=== PATIENT | male | born 1955 | race Caucasian/White ===

== ENCOUNTER 2024-06-29 12:54 | Inpatient (IN) | payer OTHER, SELFPAY ==
[2024-06-29] VITALS (30 sets, daily range): BP systolic 89–213; BP diastolic 40–136; PULSE 54–97; RESP 16–20; TEMP 36.6–37.1; O2SAT 94–99; BMI 42.2; BMI 42.1
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
[2024-06-29] MEDS: KETOROLAC 15 MG/ML inj IVP (14:15)
[2024-06-29] MEDS: 0.9 % SODIUM CHLORIDE 1000 ml 1,000 ML IV (14:17)
[2024-06-29 14:51] LABS: Chloride* 105 mmol/L (96-114); Potassium* 3.9 mmol/L (3.6-5.1); Sodium* 137 mmol/L (135-149)
[2024-06-29 14:53] LABS: Creatinine* 1.1 mg/dL (0.5-1.5); Est. Creatinine Clearance* 68.21; Estimated Glomerular Filt Rate 74 ml/min
[2024-06-29 14:54] LABS: Anion Gap 5 mEq/L (7-15); Blood Urea Nitrogen* 35 mg/dL (7-30); Calcium* 8.7 mg/dL (8.4-10.6); Carbon Dioxide* 27 mmol/L (20-32); Glucose* 113 mg/dL (60-115)
[2024-06-29 15:16] LABS: Basophils Absolute Auto 0.03 K/uL (0.00-0.30); Basophils Percent Auto 0.4 % (0.0-3.0); Eosinophils Absolute Auto 0.13 K/uL (0.00-0.50); Eosinophils Percent Auto 1.7 % (0.0-7.0); Hematocrit 20.5 % (37.0-53.0); Immature Granulocytes Abs Auto 0.04 K/uL (0.00-0.30); Immature Granulocytes Pct Auto 0.5 %; Lymphocytes Percent Auto 15.7 % (20-44); Mean Corpuscular HGB Conc 33 gm/dL (32-36); Mean Corpuscular Hemoglobin 34 pg (26-34); Mean Corpuscular Volume 104 fL (80-100); Monocytes Percent Auto 8.1 % (0.0-11.0); Neutrophils Percent Auto 73.6 % (42.0-72.0); Platelet Count* 221 K/uL (140-440); RDW Coefficient of Variation % 13.4 % (11.5-15.5); Red Blood Count 1.98 m/uL (4.30-5.90); White Blood Count* 7.78 K/uL (4.50-11.00)
[2024-06-29 15:23] LABS: Hemoglobin* 6.8 gm/dL (13.5-17.5); Slide Review Reflex No
[2024-06-29 16:30] LABS: Fecal Occult Blood* Positive (Negative)
[2024-06-29] MEDS: MORPHINE 4 MG/ML INJ IVP (16:32)
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
[2024-06-29] MEDS: PANTOPRAZOLE SODIUM 40 MG INJ IVP ×2 (16:48→20:37)
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
[2024-06-29] MEDS: ACETAMINOPHEN 325 MG TABLET 975 MG PO (20:37)
[2024-06-29] MEDS: SODIUM CHLORIDE 0.9 % (FLUSH) 10 ML SYRINGE 5 ML IVF (20:39)
[2024-06-29] MEDS: PANTOPRAZOLE SODIUM 80 MG in 0.9 % SODIUM CHLORIDE 100 ml 100 ML 10 MG IVPB (20:39)
[2024-06-29 21:56] LABS: INR 1.05 (0.91-1.10); Prothrombin Time 14.4 Seconds
[2024-06-29] MEDS: FUROSEMIDE 10 MG/ML inj 20 MG IVP (22:16)
[2024-06-30] VITALS (17 sets, daily range): BP systolic 96–134; BP diastolic 56–75; PULSE 57–85; RESP 12–18; TEMP 36.3–37.2; O2SAT 93–98
[2024-06-30 06:24] LABS: Basophils Absolute Auto 0.03 K/uL (0.00-0.30); Basophils Percent Auto 0.6 % (0.0-3.0); Eosinophils Absolute Auto 0.23 K/uL (0.00-0.50); Eosinophils Percent Auto 4.8 % (0.0-7.0); Hematocrit 22.5 % (37.0-53.0); Immature Granulocytes Abs Auto 0.03 K/uL (0.00-0.30); Immature Granulocytes Pct Auto 0.6 %; Lymphocytes Absolute Auto 1.06 K/uL (0.90-2.90); Mean Corpuscular HGB Conc 33 gm/dL (32-36); Mean Corpuscular Hemoglobin 33 pg (26-34); Mean Corpuscular Volume 100 fL (80-100); Monocytes Percent Auto 9.5 % (0.0-11.0); Neutrophils Absolute Auto 3.01 K/uL (1.7-7.0); Neutrophils Percent Auto 62.5 % (42.0-72.0); Platelet Count* 164 K/uL (140-440); RDW Coefficient of Variation % 14.5 % (11.5-15.5); Red Blood Count 2.26 m/uL (4.30-5.90); White Blood Count* 4.82 K/uL (4.50-11.00)
[2024-06-30 06:30] LABS: Hemoglobin* 7.4 gm/dL (13.5-17.5); Slide Review Reflex No
--- NOTE | 2024-06-30 06:31 | PC.NURSE ---
End of shift [id number]: Pt has been A&O, afebrile and VSS with exception to ongoing soft BP?s ranging 80s/60s- 100s/70s. Pt denies having any pain, nausea or dizziness. He ambulates in the room SBA d/t IV pole with a steady gait. TELE applied showing NSR rate in keshia 60s-70s. Second unit of RBC?s infused this shift with no reaction or complications. PIV in left AC is now SL and C/D/I. PIV in right FA is infusing IV Protonix @ 10 mL/hr with an NS rider TKO. Pt has been NPO since 0000 for planned EGD today. He?s had adequate U/O overnight and no BM. 8/20 AM Hgb 7.4 improved from 6.8 yesterday after receiving 2 units. ?
--- NOTE | 2024-06-30 08:51 | REH.OT ---
OT consult order received. Hold eval today per MD.
[2024-06-30] MEDS: SODIUM CHLORIDE 0.9 % (FLUSH) 10 ML SYRINGE 5 ML IVF ×2 (09:16→21:04)
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
--- NOTE | 2024-06-30 10:47 | P.ANES_ITS ---
Anesthesia Charges Start Date/Time Anesthesia Start Date: 06/30/24 Anesthesia Start Time: 10:16 Stop Date/Time Anesthesia Stop Date: 06/30/24 Anesthesia Stop Time: 10:35 Summary Emergency: [employer]
[2024-06-30] MEDS: ACETAMINOPHEN 325 MG TABLET 975 MG PO ×2 (13:07→21:07)
--- NOTE | 2024-06-30 15:21 | PC.NURSE ---
End of shift [id number]: Pt has been A&O, afebrile and VSS. Pt denies SOB/CP/N/V. He ambulates in the room SBA. TELE applied showing NSR. Third?unit of RBC?s infused this shift with no reaction or complications. SL. Pt tolerates reg diet well following EGD. Pt expressed knee pain 3/10, prn pain medication given. Pt is resting comfortably with call light in reach. ?
[2024-06-30 16:42] LABS: Hemoglobin* 8.7 gm/dL (13.5-17.5)
[2024-06-30 16:56] LABS: Chloride* 107 mmol/L (96-114); Sodium* 136 mmol/L (135-149)
[2024-06-30 16:59] LABS: Anion Gap 2 mEq/L (7-15); Blood Urea Nitrogen* 19 mg/dL (7-30); Carbon Dioxide* 27 mmol/L (20-32); Est. Creatinine Clearance* 75.03; Estimated Glomerular Filt Rate 83 ml/min
--- NOTE | 2024-06-30 16:59 | PC.NURSE ---
Shift Summary: Patient pleasant and cooperative. Up with one assist, walker and gait belt. Vitals stable and WNL. Up in halls walking with staff. Pain managed with PRN medication see JAN. Dressings dry and intact, DARCI removed today by surgeon. Tolerating regular diet, denies nausea.
[2024-06-30 17:00] LABS: Calcium* 8.3 mg/dL (8.4-10.6); Glucose* 128 mg/dL (60-115)
[2024-06-30] MEDS: SIMVASTATIN 20 MG TABLET PO (17:50)
[2024-06-30] MEDS: PANTOPRAZOLE SODIUM 40 MG INJ IVP (21:04)
[2024-07-01 02:24] VITALS: BP 113/71; PULSE 70; RESP 18; TEMP 36.8; O2SAT 96
--- NOTE | 2024-07-01 04:21 | PC.NURSE ---
Pt rested well this night. No BM. Up IND. Pain remains but is tolerated with PRN Tylenol. VS unremarkable.
[2024-07-01 06:49] LABS: Basophils Absolute Auto 0.03 K/uL (0.00-0.30); Basophils Percent Auto 0.5 % (0.0-3.0); Eosinophils Absolute Auto 0.27 K/uL (0.00-0.50); Eosinophils Percent Auto 4.6 % (0.0-7.0); Hematocrit 27.5 % (37.0-53.0); Hemoglobin* 8.9 gm/dL (13.5-17.5); Immature Granulocytes Abs Auto 0.06 K/uL (0.00-0.30); Lymphocytes Absolute Auto 1.27 K/uL (0.90-2.90); Lymphocytes Percent Auto 21.7 % (20-44); Mean Corpuscular HGB Conc 32 gm/dL (32-36); Mean Corpuscular Hemoglobin 33 pg (26-34); Mean Corpuscular Volume 100 fL (80-100); Monocytes Percent Auto 7.2 % (0.0-11.0); Neutrophils Absolute Auto 3.81 K/uL (1.7-7.0); Platelet Count* 214 K/uL (140-440); RDW Coefficient of Variation % 14.8 % (11.5-15.5); Red Blood Count 2.74 m/uL (4.30-5.90); White Blood Count* 5.86 K/uL (4.50-11.00)
[2024-07-01 06:54] LABS: Slide Review Reflex No
[2024-07-01 07:00] VITALS: BP 128/81; PULSE 66; RESP 16; TEMP 36.5; O2SAT 97
[2024-07-01 07:07] LABS: Chloride* 108 mmol/L (96-114)
[2024-07-01 07:08] LABS: Potassium* 4.1 mmol/L (3.6-5.1); Sodium* 137 mmol/L (135-149)
[2024-07-01 07:10] LABS: Creatinine* 0.9 mg/dL (0.5-1.5); Est. Creatinine Clearance* 75.03; Estimated Glomerular Filt Rate 94 ml/min
[2024-07-01 07:11] LABS: Anion Gap 3 mEq/L (7-15); Blood Urea Nitrogen* 17 mg/dL (7-30); Calcium* 8.7 mg/dL (8.4-10.6); Carbon Dioxide* 26 mmol/L (20-32); Glucose* 102 mg/dL (60-115)
[2024-07-01] MEDS: SODIUM CHLORIDE 0.9 % (FLUSH) 10 ML SYRINGE 5 ML IVF (08:28)
[2024-07-01] MEDS: PANTOPRAZOLE SODIUM 40 MG INJ IVP (08:28)
--- NOTE | 2024-07-01 11:26 | PC.NURSE ---
Pt discharged @ 0021 with family member via wheelchair. Belongings form signed. Discharge papers signed.
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
== END 2024-07-01 09:59 | disposition home or self-care (01) | DRG 811 ==
LOC: ED 14:10 → MEDSURG 17:57
PROVIDERS: Family Medicine; Admitting Provider Family Medicine; Emergency Provider Emergency Medicine; PCP Family Medicine; Visit Provider Family Medicine
DX: D62 Acute posthemorrhagic anemia (principal); K25.0 Acute gastric ulcer with hemorrhage; K92.1 Melena; Z68.41 Body mass index [BMI] 40.0-44.9, adult; T39.315A Adverse effect of propionic acid derivatives, initial encounter; E66.01 Morbid (severe) obesity due to excess calories; I10 Essential (primary) hypertension; G89.29 Other chronic pain; M54.9 Dorsalgia, unspecified; M54.2 Cervicalgia; R42 Dizziness and giddiness
CPT/HCPCS: 00731; 36415; 36430; 43239; 71250; 72125; 72128; 72131; 74174; 80048; 82270; 84484; 85018; 85025; 85610; 86850; 86900; 86901; 86922; 87338; 88305; 93005; 99140; 99284; 99285; A9270; J1885; J1940; J2270; J2470; J2704; J3490; J7030; P9016; Q9967

== ENCOUNTER 2024-07-24 09:28 | Outpatient (CLI) | payer OTHER, SELFPAY ==
--- NOTE | 2024-07-24 09:45 | CRLHL7_ITS ---
For Patients: As a result of the Century Cures Act, medical imaging exams and procedure reports are released immediately into your electronic medical record. You may view this report before your referring provider. If you have questions, please contact your health care provider. INDICATION : Cervicalgia. TECHNIQUE : Cervical spine MRI without contrast. COMPARISON: COMPARISONCervical spine CT from 06/29/2024. FINDINGS: Normal cervical lordotic curve. No recent compression fracture or marrow replacing process. Posterior fossa structures are normal. Cervical cord signal is normal. No extraspinal soft tissue abnormalities. Discs/Endplates: Advanced disc height loss, disc desiccation and endplate remodeling at C3-4, C4-5, C5-6 and C6-7. Mild disc degeneration elsewhere. Findings at individual levels as follows: Craniocervical junction: Alignment is maintained. C2-C3: Trace anterolisthesis. Bilateral uncovertebral arthrosis and left facet arthrosis. Mild right and [id number] left neural foraminal stenosis. C3-C4: Broad-based disc osteophyte complex contacts the ventral cord. Ligamentum flavum buckling. Moderate spinal canal stenosis. Bilateral uncovertebral arthrosis with moderate left and advanced right neural foraminal stenosis. Compression of the exiting right C4 nerve root. C4-C5: Broad-based disc osteophyte complex contacts the ventral cord. Ligamentum flavum buckling. Moderate spinal canal stenosis. Bilateral uncovertebral and facet arthrosis with moderately advanced left and advanced right neural foraminal stenosis. Compression of the exiting C5 nerve roots. C5-C6: Broad-based disc osteophyte complex contacts the ventral cord. Ligamentum flavum buckling. Moderate spinal canal stenosis. Bilateral uncovertebral arthrosis with moderately advanced bilateral neural foraminal stenosis. Compression of the exiting C6 nerve roots. C6-C7: Shallow disc osteophyte complex flattens the thecal sac. Mild spinal canal stenosis. Bilateral uncovertebral arthrosis with moderately advanced left and advanced right neural foraminal stenosis. Compression of the exiting C7 nerve roots. C7-T1: Trace anterolisthesis. Bilateral low-grade facet arthrosis. No spinal canal or neural foraminal stenosis. T2-3: No spinal canal or neural foraminal stenosis. IMPRESSION: 1. Multilevel high-grade cervical neural foraminal stenosis at C3-4 on the right, C4-5 bilaterally, C5-6 bilaterally and C6-7 bilaterally with compression of exiting nerve roots at these levels. 2. Moderate spinal canal stenosis at C3-4, C4-5 and C5-6. No significant extrinsic cord deformity at these levels. Cervical cord signal is normal. 3. Widespread cervical disc degeneration. Dictated by Zoltan Barlow MD @ 07/27/2024 10:18:03 AM (Electronically Signed)
== END 2024-07-24 09:29 | disposition home or self-care (01) ==
PROVIDERS: PCP Family Medicine; Visit Provider Family Medicine
DX: M54.2 Cervicalgia (principal); M50.31 Other cervical disc degeneration, high cervical region; M50.321 Other cervical disc degeneration at C4-C5 level; M50.322 Other cervical disc degeneration at C5-C6 level
CPT/HCPCS: 72141

== ENCOUNTER 2025-01-05 08:59 | Outpatient (CLI) | payer OTHER, SELFPAY ==
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
== END 2025-01-05 09:00 | disposition home or self-care (01) ==
PROVIDERS: PCP Family Medicine; Visit Provider Family Medicine Sports Medicine
DX: M25.511 Pain in right shoulder (principal); S43.491A Other sprain of right shoulder joint, initial encounter; M94.211 Chondromalacia, right shoulder; M19.011 Primary osteoarthritis, right shoulder; M67.911 Unspecified disorder of synovium and tendon, right shoulder
CPT/HCPCS: 73221

== ENCOUNTER 2025-01-05 09:02 | Outpatient (CLI) | payer OTHER, SELFPAY | END 2025-01-05 09:03 | disposition home or self-care (01) | LOC: MRI 09:03 | PROVIDERS: PCP Family Medicine; Visit Provider Anesthesiology | DX: M54.50 Low back pain, unspecified (principal); M47.896 Other spondylosis, lumbar region; M51.26 Other intervertebral disc displacement, lumbar region | CPT/HCPCS: 72148; 73221 ==

== ENCOUNTER 2025-01-12 10:14 | Outpatient (CLI) | payer OTHER, SELFPAY ==
--- NOTE | 2025-01-12 10:30 | CRLHL7_ITS ---
For Patients: As a result of the Century Cures Act, medical imaging exams and procedure reports are released immediately into your electronic medical record. You may view this report before your referring provider. If you have questions, please contact your health care provider. Indication: Right knee pain Technique: Three-phase nuclear medicine bone scan the bilateral knees after the intravenous administration of 24.2 millicuries technetium 99 M MDP. Additionally whole-body bone scan and lateral views of the skull were obtained. Comparison: Report only right knee radiographs 10/12/2021 Findings: Flow: Mild increased flow to the left knee medial compartment. Blood pool: Focal increased within the left medial knee. Minimal increased blood pool about the right medial femoral condyle. Delayed: Significant focal uptake within the left knee medial compartment. Relative photopenia throughout the right knee compatible with right knee arthroplasty. Mild activity throughout the right knee tibial plateau and within the right knee medial femoral condyle. Whole-body bone scan demonstrates degenerative type activity within the cervical spine, acromioclavicular joints, spine and feet. Normal renal and urinary bladder activity. No abnormal soft tissue uptake. IMPRESSION: Three-phase positive bone scan of the left knee medial compartment, likely significant degenerative changes although in the correct clinical context consider osteomyelitis. Mild activity about the right knee medial femoral condyle, consider loosening or infection. Recommend appropriate laboratory correlation and updated radiographs. Dictated by Regino Mathews MD @ 01/12/2025 6:04:19 PM (Electronically Signed)
== END 2025-01-12 10:15 | disposition home or self-care (01) ==
PROVIDERS: PCP Family Medicine; Visit Provider Physician Assistant Surgical
DX: M25.561 Pain in right knee (principal)
CPT/HCPCS: 78306; 78315; A9503

== ENCOUNTER 2025-03-09 08:30 | Inpatient (IN) | payer OTHER, SELFPAY ==
[2025-03-09] VITALS (19 sets, daily range): BP systolic 104–172; BP diastolic 67–111; PULSE 60–97; RESP 16–20; TEMP 36–36.9; O2SAT 91–97; BMI 43.2
[2025-03-09] MEDS: LACTATED RINGERS 1000 ML 1,000 ML 100 ML IV ×2 (09:50→16:00)
[2025-03-09] MEDS: MIDAZOLAM HCL 1 MG/ML inj IVP (12:00)
[2025-03-09] MEDS: ACETAMINOPHEN 500 MG TABLET 1000 MG PO ×3 (12:00→23:44)
[2025-03-09] MEDS: CELECOXIB 200 MG CAPSULE PO (12:00)
[2025-03-09] MEDS: OXYCODONE (CR) 10 MG TAB.ER.12H PO (12:00)
[2025-03-09] MEDS: fentaNYL 100 MCG/2 ML inj IVP (12:01)
--- NOTE | 2025-03-09 12:05 | SUR.PREOP ---
TIME?OUT:?1159 PT/RN/MDA?VERIFICATION?OF?SURGICAL?SITE,?PROCEDURE,?AND?CONSENT OBTAINED?PRIOR?TO?INVASIVE?PROCEDURE.
[2025-03-09] MEDS: CEFAZOLIN 1 GM inj IVP (13:06)
[2025-03-09] MEDS: TRANEXAMIC ACID 100 MG/ML INJ 1000 MG IV (13:06)
--- NOTE | 2025-03-09 14:42 | P.NB_ITS ---
Nerve Block Nerve Block Time Seen by Provider: 12:00 Date Seen: 03/09/25 Type of block requested by surgeon for post-operative analgesia: adductor canal Side: right Time out performed: Yes Verification of patient name: Yes Verification of date of : Yes Site marking: site marked Name of person performing procedure: Bryce Continuous monitoring Was continuous monitoring of O2 sat, B/P, cardiac rehabilitation specialist, recorded every 15 minutes?: Yes Procedure Checklist: sterile prep, needles and gloves Ultrasound guided. Images saved: Yes Medications given in 5ml increments after negative aspiration: Marcaine %: 0.25 mL: 15 Needle gauge: 20 Precedex (mcg): 25 Patient tolerated procedure well: Yes Block Charges Block Charge (with Pro Fee): Femoral Nerve Use of Ultrasound Machine for Block: Yes- US Guidance/pain block
--- NOTE | 2025-03-09 14:42 | P.NB_ITS ---
Nerve Block Nerve Block Time Seen by Provider: 12:00 Date Seen: 03/09/25 Type of block requested by surgeon for post-operative analgesia: geniculars Side: right Time out performed: Yes Verification of patient name: Yes Verification of date of : Yes Site marking: site marked Name of person performing procedure: Bryce Continuous monitoring Was continuous monitoring of O2 sat, B/P, heel room supervisor, recorded every 15 minutes?: Yes Procedure Checklist: sterile prep, needles and gloves Ultrasound guided. Images saved: Yes Medications given in 5ml increments after negative aspiration: Marcaine %: 0.25 mL: 9 Needle gauge: 25 Patient tolerated procedure well: Yes Block Charges Block Charge (with Pro Fee): Genicular Nerve Block
--- NOTE | 2025-03-09 14:43 | P.ANES_ITS ---
Anesthesia Charges Start Date/Time Anesthesia Start Date: 03/09/25 Anesthesia Start Time: 12:14 Stop Date/Time Anesthesia Stop Date: 03/09/25 Anesthesia Stop Time: 16:38 Coding CPT Codes CPT Codes: ANESTH KNEE ARTHROPLASTY - 35448 ([id number]) P3 - PATIENT W/SEVERE SYS DISEASE, QK - HEAVY LINE TECHNICIAN 2-4 CNCRNT ANES PROC, QX - MANAGER DECISION SUPPORT SVC W/ MD MED DIRECTION
--- NOTE | 2025-03-09 14:43 | W.ANESCHARGE ---
Anesthesia Charges Start Date/Time Anesthesia Start Date: 03/09/25 Anesthesia Start Time: 12:14 Stop Date/Time Anesthesia Stop Date: 03/09/25 Anesthesia Stop Time: 16:38 Coding CPT Codes CPT Codes: ANESTH KNEE ARTHROPLASTY - 34828 ([id number]) P3 - PATIENT W/SEVERE SYS DISEASE, QK - NUCLEAR AUXILIARY OPERATOR 2-4 CNCRNT ANES PROC, QX - COMPUTING MACHINE OPERATOR SVC W/ MD MED DIRECTION
--- NOTE | 2025-03-09 16:06 | CRLHL7_ITS ---
For Patients: As a result of the Cures Act, medical imaging exams and procedure reports are released immediately into your electronic medical record. You may view this report before your referring provider. If you have questions, please contact your health care provider. Indication: Postop total knee replacement. Technique: Two views of the right knee. Comparison: Right knee radiograph 01/06/2025 Findings: Status post right total knee prosthesis revision with fully restrained tibiofemoral components and cemented patella component. Postoperative changes within the soft tissues. No other retained radiopaque metallic surgical foreign body. Impression: Right total knee prosthesis revision. Dictated by Jarad Cunha MD @ 03/10/2025 1:02:26 PM (Electronically Signed)
--- NOTE | 2025-03-09 16:17 | PM.ORPRC ---
Procedure Note Date of procedure: 03/09/25 Procedure: PREOPERATIVE DIAGNOSIS: Failed Right total knee arthroplasty, secondary to aseptic loosening POSTOPERATIVE DIAGNOSIS: Failed Right total knee arthroplasty, secondary to aseptic loosening NAME OF OPERATION: Revision Right total knee arthroplasty SURGEON: Zachary Hdz MD AIDS NURSE: SONIDO Daniels Elizabeth Oss, MS4 ANESTHESIA: General ESTIMATED BLOOD LOSS: 25 mL COMPLICATIONS: None SPECIMENS: None DRAINS: None PREOPERATIVE ANTIBIOTICS: Ancef 3 grams, antibiotic impregnated cement IMPLANTS: 1. J[employer]J Attune revision CRS # 7 posterior stabilized femur, 35 mm sleeve, 18 mm x 60 mm uncemented stem 2. # 7 revision CRS rotating platform tibia, 29 mm sleeve, 18 mm x 60 mm uncemented stem 3. # 7 posterior stabilized, 10 mm rotating platform polyethylene 4. 41 patella INDICATIONS: The patient is a 69-year-old who previously underwent total knee arthroplasty. The knee is painful and determined to be loose. Revision total knee arthroplasty was offered. The risks, benefits and expected outcomes were discussed in detail. These included but were not limited to: Infection, bleeding, injury to blood vessel or nerve, venous thromboembolism. All questions were answered to their satisfaction. Use of an physician office assistant was necessary throughout the case for patient positioning and safety, soft tissue retraction, and closure. PROCEDURE: Spinal anesthesia was administered. The patient was placed supine on the operating table. The physician office assistant made sure the patient was positioned appropriately. The lower extremity was prepped and draped in the usual sterile fashion. The limb was exsanguinated with the Franck bandage. The pneumatic tourniquet was inflated to 300 mmHg. The previously placed standard anterior incision was utilized with the knee in flexion. Subcutaneous dissection was sharply taken to the extensor mechanism. Full-thickness medial and lateral flaps were elevated. The physician office assistant retracted the soft tissues and protected them throughout the case. A standard subvastus approach was made. The infrapatellar fat pad was sharply debrided. The patella was subluxed. Scar was sharply debrided. The poly was removed. The oscillating saw with the ACL blade was used to free up the femoral component at the anterior, posterior and chamfer cuts both medially and laterally. The femoral component was tapped off with a tamp. There was minimal bone loss both distally and posteriorly, medially and laterally. The PCL was subperiosteally released off of both its origin and insertion. Likewise, the posterior capsule was subperiosteally released off of the femur in order to improve our anterior excursion and tibial exposure. Attention then turned to the tibial component. Again the saw and flexible osteotomes were used to free up the implant medially, anteriorly and laterally. The extractor was then placed on the tibial component and it was tapped out of the bone freeing it up. The tibial canal was reamed on power to 19 mm. This had excellent chatter. We then broached to 29 mm. This had excellent rotational stability. We freshened up the tibial cut on top of the broach. The broach was removed. The tibial trial was placed and seated on the proximal tibia. Attention then turned to the femur. The femoral canal was reestablished with the drill The femoral canal was reamed to 21 mm. The 35 mm broach was used and had excellent rotational stability and press-Fit. The distal femoral cutting jig was secured to the broach. Rotation was set parallel to the trans epicondylar axis. The saw was used to freshen up the distal cut, removing 2 mm. The anterior, posterior and posterior chamfer cuts were freshened up. It was obvious that we are going to need posterior augments on the femoral side. The boxed cutting jig was placed and the box cuts were made. The broach was removed, the trial femoral component was placed and was an excellent fit. Attention was then turned to the patellar component. The saw was used to remove patellar component. The drill guide was placed and new lugs were drilled. The trial was placed and was an excellent fit. A trial polyethylene was placed. The knee was nicely balanced in both flexion and extension. Trial components were removed, cancellous surfaces were irrigated with pulse lavage, then thoroughly dried, by the physician office assistant. Components were assembled on the back table. We cemented the tibial component, then the femoral component. We placed the 10 mm trial polyethylene onto the tibial tray. The knee was brought into full extension. We then cemented the patellar component. Excessive cement was removed. The cement was allowed to harden. We removed the trial polyethylene and placed the real implant. The knee was taken through a range of motion and was found to be nicely balanced in both flexion and extension. The patella tracks centrally. The physician office assistant did a three minute dilute Betadine solution soak. The physician office assistant irrigated the wound with 3 liters of normal saline via pulse lavage. The physician office assistant reapproximated the extensor mechanism with #1 Vicryl in an interrupted [id number] fashion. The physician office assistant then ran the extensor mechanism with a #1 PDO Stratafix. The physician office assistant closed the subcutaneous tissues with a 3-0 Stratafix and the skin with a running 3-0 Stratafix in a subcuticular fashion. Glue was used to seal the skin. The physician office assistant placed a dry dressing. Sponge and needle counts were correct x2. The patient tolerated the procedure well. There were no apparent complications. They were carefully transferred to the hospital bed and taken to the postanesthesia care unit in satisfactory condition. PLAN: The patient will be mobilized with physical therapy. Aspirin will be used for DVT prophylaxis. They will be discharged to home once medically appropriate.
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
[2025-03-09] MEDS: LACTATED RINGERS 1000 ML 1,000 ML 75 ML IV (18:05)
[2025-03-09] MEDS: HYDROmorphone 0.5 mg/0.5 ml inj IVP (18:05)
[2025-03-09] MEDS: CEFAZOLIN 3 GM in 0.9 % SODIUM CHLORIDE Mini-bag 100 ML IVPB (19:30)
[2025-03-09] MEDS: SENNOSIDES 1 TAB TABLET 2 TAB PO (20:25)
[2025-03-09] MEDS: OXYCODONE 5 MG TABLET PO ×2 (20:26→23:44)
[2025-03-09] MEDS: ASPIRIN 81 MG TABLET EC PO (20:26)
[2025-03-09] MEDS: SIMVASTATIN 20 MG TABLET PO (21:14)
[2025-03-10 03:37] VITALS: BP 121/84; PULSE 74; TEMP 36.8; O2SAT 94
[2025-03-10] MEDS: OXYCODONE 5 MG TABLET PO ×2 (04:04→08:01)
[2025-03-10] MEDS: CEFAZOLIN 3 GM in 0.9 % SODIUM CHLORIDE Mini-bag 100 ML IVPB (04:06)
[2025-03-10] MEDS: 0.9 % SODIUM CHLORIDE 500 ML IV (04:44)
[2025-03-10] MEDS: ACETAMINOPHEN 500 MG TABLET 1000 MG PO (05:43)
[2025-03-10] MEDS: OMEPRAZOLE 20 MG CAPSULE DR 40 MG PO (06:05)
[2025-03-10 06:34] LABS: Basophils Absolute Auto 0.02 K/uL (0.00-0.30); Basophils Percent Auto 0.3 % (0.0-3.0); Eosinophils Absolute Auto 0.01 K/uL (0.00-0.50); Eosinophils Percent Auto 0.1 % (0.0-7.0); Hematocrit 33.3 % (37.0-53.0); Immature Granulocytes Abs Auto 0.01 K/uL (0.00-0.30); Immature Granulocytes Pct Auto 0.1 %; Lymphocytes Percent Auto 9.7 % (20-44); Mean Corpuscular HGB Conc 33 gm/dL (32-36); Mean Corpuscular Hemoglobin 34 pg (26-34); Mean Corpuscular Volume 102 fL (80-100); Monocytes Percent Auto 15.3 % (0.0-11.0); Neutrophils Percent Auto 74.5 % (42.0-72.0); Platelet Count* 216 K/uL (140-440); RDW Coefficient of Variation % 14.2 % (11.5-15.5); Red Blood Count 3.27 m/uL (4.30-5.90); Slide Review Reflex No; White Blood Count* 7.56 K/uL (4.50-11.00)
--- NOTE | 2025-03-10 06:58 | PC.NURSE ---
End of shift report: VS WNL. Afebrile. Denies nausea. Rates pain from a 7-5, pain meds offered and given. Pt voiding small amounts of dark urine, pt reports feeling like he is emptying bladder. International Coordinator bladder scanned and 500 cc bolus given per orders. Ambulates 1 A, GB, W. Tolerates reg diet. Pt was on 1 L O2 overnight when sleeping due to decreased O2 sats. Intermittent ice applied overnight. Call light within reach.?
[2025-03-10 07:03] LABS: Potassium* 4.1 mmol/L (3.6-5.1); Sodium* 134 mmol/L (135-149)
[2025-03-10 07:06] LABS: Blood Urea Nitrogen* 17 mg/dL (7-30); Est. Creatinine Clearance* 74.01; Estimated Glomerular Filt Rate 82 ml/min
[2025-03-10 07:08] LABS: INR 1.07 (0.91-1.10); Prothrombin Time 14.7 Seconds
--- NOTE | 2025-03-10 07:55 | PM.ORPN ---
Subjective Subjective Time Seen by Provider: 07:00 Date Seen: 03/10/25 Principal diagnosis: Status post revision total knee arthroplasty 03/09/2025 Interval history: Bronson is comfortable at rest this morning. He denies nausea and vomiting. He will discharge to home. Ortho Exam Narrative Exam Narrative: Alert and oriented x3. Patient is in no acute distress. Converses without labored breathing. Hearing is grossly intact. Ambulates with a walker. Examination of the right lower extremity shows the dressing is intact. Tape has been added to the dressing. No erythema or warmth or sign of infection. Subcutaneous hematoma anteriorly is present. No ecchymosis. Calves are soft and nontender. CMS is intact right lower extremity. He is easily able to straight leg raise. Mild edema about the knee. No edema about the lower leg. Const Vital Signs, click to edit/add: Vital Signs - 24 hr 03/09/25 09:10 03/09/25 12:00 03/09/25 16:35 Temperature 97.8 F 97.5 F L Pulse Rate 65 60 73 Pulse Rate [Pulse Oximeter] Respiratory Rate 18 18 20 Blood Pressure 149/88 H 140/80 H 144/93 H Blood Pressure [Right Arm] Pulse Oximetry 96 96 96 Oxygen Delivery Method Room Air Nasal Cannula OxyMask Oxygen Flow Rate 2 6 03/09/25 16:40 03/09/25 16:45 03/09/25 16:50 Temperature Pulse Rate 76 67 75 Pulse Rate [Pulse Oximeter] Respiratory Rate 18 20 17 Blood Pressure 104/67 156/88 H 147/92 H Blood Pressure [Right Arm] Pulse Oximetry 97 96 97 Oxygen Delivery Method Oxygen Flow Rate 03/09/25 16:55 03/09/25 17:00 03/09/25 17:05 Temperature 97.9 F Pulse Rate 78 76 75 Pulse Rate [Pulse Oximeter] Respiratory Rate 18 16 18 Blood Pressure 152/98 H 155/90 H 149/97 H Blood Pressure [Right Arm] Pulse Oximetry 91 91 92 Oxygen Delivery Method Room Air Oxygen Flow Rate 03/09/25 17:30 03/09/25 17:45 03/09/25 18:00 Temperature Pulse Rate 66 63 64 Pulse Rate [Pulse Oximeter] Respiratory Rate 18 18 18 Blood Pressure 141/77 H 153/97 H 139/91 H Blood Pressure [Right Arm] Pulse Oximetry 92 95 94 Oxygen Delivery Method Room Air Room Air Room Air Oxygen Flow Rate 03/09/25 18:15 03/09/25 18:30 03/09/25 18:53 Temperature 96.8 F L Pulse Rate 60 63 63 Pulse Rate [Pulse Oximeter] Respiratory Rate 18 18 18 Blood Pressure 115/76 153/100 H 147/99 H Blood Pressure [Right Arm] Pulse Oximetry 94 92 Oxygen Delivery Method Room Air Room Air Room Air Oxygen Flow Rate 03/09/25 20:00 03/09/25 21:00 03/09/25 22:00 Temperature 98.2 F 98.2 F 97.5 F L Pulse Rate 64 97 95 Pulse Rate [Pulse Oximeter] Respiratory Rate 16 16 18 Blood Pressure 172/91 H 144/111 H 139/83 Blood Pressure [Right Arm] Pulse Oximetry 94 91 95 Oxygen Delivery Method Room Air Room Air Room Air Oxygen Flow Rate 03/09/25 23:00 03/09/25 23:00 03/09/25 23:00 Temperature 98.5 F Pulse Rate 65 Pulse Rate [Pulse Oximeter] Respiratory Rate 18 18 18 Blood Pressure 143/73 H Blood Pressure [Right Arm] Pulse Oximetry 92 97 Oxygen Delivery Method Nasal Cannula Room Air Oxygen Flow Rate 1 03/10/25 03:37 Temperature 98.2 F Pulse Rate Pulse Rate [Pulse Oximeter] 74 Respiratory Rate Blood Pressure Blood Pressure [Right Arm] 121/84 Pulse Oximetry 94 Oxygen Delivery Method Room Air Oxygen Flow Rate Assessment and Plan Assessment and plan (1) Status post revision of total replacement of right knee: Problem details: 03/09/2025 Status: Acute Assessment and Plan: Plan for discharge is today to home if they meet discharge criteria. DVT prophylaxis includes aspirin 81 mg twice daily x1 month, Compression stockings as needed for swelling. Frequent ambulation, every hour throughout the day. Remove dressing in 1 week. Observe wound and phone Orthopedics with any questions or concerns Return to clinic in 1 week for a wound check Return to clinic in 6 weeks with surgeon Minimize narcotic use. Wean off and discontinue soon as possible. Activities as tolerated. No strenuous activity. Outpatient physical therapy as scheduled. Ice and elevate the operative extremity. No restriction on ice.
[2025-03-10] MEDS: SENNOSIDES 1 TAB TABLET 2 TAB PO (08:00)
[2025-03-10] MEDS: ASPIRIN 81 MG TABLET EC PO (08:03)
[2025-03-10] MEDS: lisinopriL 20 MG TABLET PO (08:03)
[2025-03-10] MEDS: AMLODIPINE 5 MG TABLET PO (08:04)
[2025-03-10 08:09] VITALS: BP 127/95; PULSE 83; RESP 18; TEMP 36.9; O2SAT 95
--- NOTE | 2025-03-10 09:28 | PC.SOCIAL ---
Discharge Planning: SW met with patient who states that he is doing well and that he has no needs or concerns for going home. SW to assist if any needs arise.
[2025-03-10 10:04] VITALS: O2SAT 95
== END 2025-03-10 10:40 | disposition home or self-care (01) | DRG 488 ==
PROVIDERS: Admitting Provider Orthopaedic Surgery; PCP Family Medicine; Visit Provider Orthopaedic Surgery
PROC: 0SW Lower Joints, Revision (ICD-10-PCS; CPT 27447; principal; 2025-03-09 10:30)
DX: T84.032A Mechanical loosening of internal right knee prosthetic joint, initial encounter (principal); Z68.41 Body mass index [BMI] 40.0-44.9, adult; G47.33 Obstructive sleep apnea (adult) (pediatric); M54.12 Radiculopathy, cervical region; G89.29 Other chronic pain; I10 Essential (primary) hypertension; E66.01 Morbid (severe) obesity due to excess calories; M54.2 Cervicalgia; M54.9 Dorsalgia, unspecified; G89.18 Other acute postprocedural pain
CPT/HCPCS: 01402; 36415; 51798; 64447; 64454; 73560; 76942; 82565; 84132; 84295; 84520; 85025; 85610; 97110; 97116; 97162; 97165; 97530; A9270; C1776; J0171; J0330; J0665; J0690; J1100; J1171; J2250; J2704; J3010; J3490; J7030; J7120